=== PATIENT | female | born 1950 | race Caucasian/White ===

== ENCOUNTER 2017-09-14 01:44 | Emergency (ER) | payer BC ==
[~2017-09-14] VITALS: Ht 167.6 cm; Wt 63.5 kg
[~2017-09-14 01:44] MED LIST: CELEXA40 MG PO; VICODIN ES 7501 TAB PO; XANAX0.25 MG PO
[2017-09-14 02:22] LABS: BASO % 0.6 % (0.0-1.0); EOS # 0.3 10*3/uL (0.0-0.4); EOS % 4.4 % (1.0-4.0); HEMATOCRIT 32.5 % (37.0-47.0); LYMPH # 2.5 10*3/uL (1.3-4.4); LYMPH % 38.6 % (27.0-41.0); MEAN CELL VOLUME 91.3 fl (81.0-99.0); MEAN CORPUSCULAR HGB 33.7 pg (27.0-31.0); MEAN CORPUSCULAR HGB CONC 36.9 g/dl (33.0-37.0); MEAN PLATELET VOLUME 9.7 fl (9.6-12.3); MONO # 0.5 10*3/uL (0.1-1.0); MONO % 7.6 % (3.0-9.0); NEUT # 3.1 10*3/uL (2.3-7.9); NEUT % 48.5 % (47.0-73.0); PLATELET COUNT AUTOMATED 291 10*3/uL (130-400); RED BLOOD COUNT 3.56 10*6/uL (4.10-5.10); RED CELL DISTRI WIDTH 12.6 % (0-14.5); WHITE BLOOD COUNT 6.4 10*3/uL (4.8-10.8)
[2017-09-14 02:33] LABS: INTERNATIONAL NORM RATIO 0.9 (2.0-3.5)
[2017-09-14 02:36] LABS: ALBUMIN 3.4 gm/dl (3.1-4.5); ALKALINE PHOSPHATASE 94 U/L (45-117); BUN 8 mg/dl (7-24); CHLORIDE 101 mmol/L (98-107); CREATININE 0.69 mg/dL (0.55-1.02); POTASSIUM 3.7 mmol/L (3.5-5.1); SGOT/AST 15 IU/L (3-35); SGPT/ALT 19 U/L (12-78); SODIUM 139 mmol/L (136-145); TOTAL PROTEIN 6.7 gm/dL (6.4-8.2)
[2017-09-14 02:50] LABS: BILIRUBIN NEGATIVE (NEGATIVE); BLOOD 1+ (NEGATIVE); CLARITY SL CLOUDY (CLEAR); COLOR YELLOW (YELLOW); GLUCOSE NEGATIVE (NEGATIVE); KETONE NEGATIVE (NEGATIVE); LEUKO ESTERASE NEGATIVE (NEGATIVE); NITRITE NEGATIVE (NEGATIVE); SPECIFIC GRAVITY <= 1.005 (1.005-1.030); UROBILINOGEN 0.2 E.U./dl (0.2-1.0)
[2017-09-14 02:55] LABS: EPITHELIAL CELLS 0-5; WBC 0-2 wbc/hpf (0-5)
[2017-09-14 03:12] VITALS: BP 119/69
[2017-09-14] MEDS ORDERED: ZITHROMAX250 MG PO (03:58)
[2017-09-14] MEDS ORDERED: PREDNISONE20 M1 PO (03:58)
[2017-09-14] MEDS ORDERED: DUONEB 3 MG/3 ML3 M1 INH (03:58)
== END 2017-09-14 04:14 | disposition home or self-care (01) ==
LOC: ED 01:44
PROVIDERS: Emergency Medicine Emergency Medical Services
DX: J20.9 Acute bronchitis, unspecified (principal); F17.200 Nicotine dependence, unspecified, uncomplicated; Z88.0 Allergy status to penicillin; Z79.899 Other long term (current) drug therapy

== ENCOUNTER 2018-07-31 17:19 | Emergency (ER) | payer OTHER ==
[~2018-07-31] VITALS: Wt 65.3 kg
[~2018-07-31 17:19] MED LIST changes: +DUONEB 3 MG/3 ML3 M1 INH; +PREDNISONE20 M1 PO; +ZITHROMAX250 MG PO
[2018-07-31 17:20] VITALS: BP 149/60
[2018-07-31] MEDS ORDERED: CLINDAMYCIN150 MG PO (17:28)
[2018-07-31] MEDS ORDERED: ZOFRAN4 MG PO (17:28)
[2018-08-01] MEDS ORDERED: KEFLEX500 M1 PO (20:04)
== END 2018-07-31 17:36 | disposition home or self-care (01) ==
LOC: ED 17:19
DX: L03.012 Cellulitis of left finger (principal); R03.0 Elevated blood-pressure reading, without diagnosis of hypertension; Z88.0 Allergy status to penicillin; Z79.899 Other long term (current) drug therapy

== ENCOUNTER 2018-08-01 19:06 | Emergency (ER) | payer OTHER ==
[~2018-08-01] VITALS: Ht 167.6 cm; Wt 65.8 kg
[~2018-08-01 19:06] MED LIST changes: +CLINDAMYCIN150 MG PO; +ZOFRAN4 MG PO
[2018-08-01 19:10] VITALS: BP 105/65
[2018-08-01] MEDS ORDERED: KEFLEX500 M1 PO (20:04)
== END 2018-08-01 19:51 | disposition home or self-care (01) ==
LOC: ED 19:06
DX: L03.012 Cellulitis of left finger (principal); Z88.0 Allergy status to penicillin

== ENCOUNTER → 2018-08-02 | Outpatient (CLI) | payer OTHER ==
[~2018-08-02] MED LIST changes: +KEFLEX500 M1 PO
[2018-08-07 15:12] LABS: HLA-B27 ANTIGEN Positive (.)
== END | disposition home or self-care (01) ==
LOC: LAB 11:59
PROVIDERS: Internal Medicine Rheumatology
DX: M47.897 Other spondylosis, lumbosacral region (principal); M87.08 Idiopathic aseptic necrosis of bone, other site; M41.84 Other forms of scoliosis, thoracic region; M50.30 Other cervical disc degeneration, unspecified cervical region

== ENCOUNTER → 2018-08-06 | Outpatient (CLI) | payer OTHER | END | disposition home or self-care (01) | LOC: WOUNDCARE 01:31 | DX: T23.022A Burn of unspecified degree of single left finger (nail) except thumb, initial encounter (principal); T31.0 Burns involving less than 10% of body surface; A49.1 Streptococcal infection, unspecified site; F17.290 Nicotine dependence, other tobacco product, uncomplicated; Z90.710 Acquired absence of both cervix and uterus; W29.2XXA Contact with other powered household machinery, initial encounter; Y93.89 Activity, other specified; Y92.89 Other specified places as the place of occurrence of the external cause; Y99.8 Other external cause status ==

== ENCOUNTER → 2018-08-13 | Outpatient (CLI) | payer OTHER | END | disposition home or self-care (01) | LOC: WOUNDCARE 04:25 | DX: T23.222D Burn of second degree of single left finger (nail) except thumb, subsequent encounter (principal); T31.0 Burns involving less than 10% of body surface; A49.1 Streptococcal infection, unspecified site; F17.290 Nicotine dependence, other tobacco product, uncomplicated; X08.8XXD Exposure to other specified smoke, fire and flames, subsequent encounter ==

== ENCOUNTER 2018-10-30 07:58 | Emergency (ER) | payer OTHER ==
[~2018-10-30] VITALS: Ht 167.6 cm; Wt 62.6 kg
[2018-10-30 07:59] VITALS: BP 134/65
[2018-10-30] MEDS ORDERED: PERCOCET 5-3251 EACH PO (09:51)
[2018-11-26] MEDS ORDERED: AVPAK PRIMIDONE50 M1 PO (11:24)
[2018-11-28] MEDS ORDERED: NORCO 5-325 TA1 EACH PO (10:23)
[2018-11-28] MEDS ORDERED: ZOFRAN4 MG PO (10:24)
== END 2018-10-30 10:18 | disposition home or self-care (01) ==
LOC: ED 07:58
DX: S62.101A Fracture of unspecified carpal bone, right wrist, initial encounter for closed fracture (principal); S52.531A Colles' fracture of right radius, initial encounter for closed fracture; Z88.0 Allergy status to penicillin; Z79.2 Long term (current) use of antibiotics; Z79.899 Other long term (current) drug therapy; Z90.710 Acquired absence of both cervix and uterus; W01.0XXA Fall on same level from slipping, tripping and stumbling without subsequent striking against object, initial encounter; Y93.G1 Activity, food preparation and clean up; Y92.090 Kitchen in other non-institutional residence as the place of occurrence of the external cause; Y99.8 Other external cause status

== ENCOUNTER → 2018-11-18 | Outpatient (CLI) | payer OTHER ==
[~2018-11-18] MED LIST changes: +AVPAK PRIMIDONE50 M1 PO; +NORCO 5-325 TA1 EACH PO; +PERCOCET 5-3251 EACH PO
== END | disposition home or self-care (01) ==
LOC: ORTHO 02:33
DX: S52.531D Colles' fracture of right radius, subsequent encounter for closed fracture with routine healing (principal); X58.XXXD Exposure to other specified factors, subsequent encounter

== ENCOUNTER → 2018-11-25 | Outpatient (CLI) | payer OTHER | END | disposition home or self-care (01) | LOC: ORTHO 00:44 | DX: S52.531D Colles' fracture of right radius, subsequent encounter for closed fracture with routine healing (principal); X58.XXXD Exposure to other specified factors, subsequent encounter; Z91.81 History of falling ==

== ENCOUNTER → 2018-11-28 | Day surgery (SDC) | payer OTHER ==
[2018-11-26 11:25] VITALS: BP 117/62
[2018-11-26 12:53] LABS: BASO # 0.1 10*3/uL (0.0-0.1); BASO % 0.9 % (0.0-1.0); EOS # 0.1 10*3/uL (0.0-0.4); EOS % 2.2 % (1.0-4.0); HEMATOCRIT 40.5 % (37.0-47.0); HEMOGLOBIN 14.8 g/dl (12.0-16.0); LYMPH # 2.3 10*3/uL (1.3-4.4); LYMPH % 38.8 % (27.0-41.0); MEAN CORPUSCULAR HGB 34.3 pg (27.0-31.0); MEAN CORPUSCULAR HGB CONC 36.5 g/dl (33.0-37.0); MEAN PLATELET VOLUME 10.7 fl (9.6-12.3); MONO # 0.3 10*3/uL (0.1-1.0); MONO % 5.7 % (3.0-9.0); NEUT % 52.2 % (47.0-73.0); PLATELET COUNT AUTOMATED 273 10*3/uL (130-400); RED BLOOD COUNT 4.31 10*6/uL (4.10-5.10); RED CELL DISTRI WIDTH 13.3 % (0-14.5); WHITE BLOOD COUNT 5.8 10*3/uL (4.8-10.8)
[2018-11-26 12:54] LABS: BILIRUBIN NEGATIVE (NEGATIVE); BLOOD 1+ (NEGATIVE); CLARITY SL CLOUDY (CLEAR); COLOR YELLOW (YELLOW); GLUCOSE NEGATIVE (NEGATIVE); KETONE NEGATIVE (NEGATIVE); LEUKO ESTERASE NEGATIVE (NEGATIVE); NITRITE NEGATIVE (NEGATIVE); SPECIFIC GRAVITY >= 1.030 (1.005-1.030); UROBILINOGEN 0.2 E.U./dl (0.2-1.0)
[2018-11-26 13:18] LABS: BACTERIA TRACE; EPITHELIAL CELLS 16-20; MUCOUS 2+
[2018-11-26 13:21] LABS: BUN 11 mg/dl (7-24); CHLORIDE 101 mmol/L (98-107); CREATININE 0.76 mg/dL (0.55-1.02); SODIUM 138 mmol/L (136-145)
[~2018-11-28] VITALS: Ht 167.6 cm; Wt 62.6 kg
--- NOTE | ~2018-11-28 | EKG ---
[place], [place] ELECTROCARDIOGRAM REPORT NAME: JAZ GARCIA UNIT #: [id number] ROOM: DOCTOR: NAGA DRAFT REPORT BIRTHDATE: [birth year] [facility] Test Date: 2018-11-26 Test Time: 12:18:40 Pat Name: JAZ GARCIA Department: Room: Gender: F Umbrella Cutter: Ifeoma Davies : 1950 Requested By: LUPIS LOTT Order Number: [id number] Reading MD: Olive Perkins MD Measurements Intervals [place] Rate: 68 P: 46 WV: 127 QRS: 43 QRSD: 84 T: 7 QT: 390 QTc: 415 Interpretive Statements Sinus rhythm Minimal ST depression Baseline wander in lead(s) V3,V4 No previous ECG available for comparison Electronically Signed On 11-27-2018 11:50:52 PDT by Olive Perkins MD CM:EKGRPT:ELECTROCARDIOGRAM REPORT [id number] LUPIS GARLAND DRAFT REPORT LUPIS LOTT DO
[2018-11-28 09:32] VITALS: BP 121/87
[2018-11-28 12:23] VITALS: BP 143/72
[2018-11-28 12:40] VITALS: BP 132/69
[2018-11-28 12:54] VITALS: BP 135/61
[2018-11-28 13:09] VITALS: BP 119/68
[2018-11-28 13:23] VITALS: BP 135/73
== END | disposition home or self-care (01) ==
LOC: SDC 11-26 11:00
PROVIDERS: Orthopaedic Surgery
DX: S52.571A Other intraarticular fracture of lower end of right radius, initial encounter for closed fracture (principal); J44.9 Chronic obstructive pulmonary disease, unspecified; F41.9 Anxiety disorder, unspecified; Z90.710 Acquired absence of both cervix and uterus; Z98.890 Other specified postprocedural states; Z79.899 Other long term (current) drug therapy; X58.XXXA Exposure to other specified factors, initial encounter; Y93.89 Activity, other specified; Y92.89 Other specified places as the place of occurrence of the external cause; Y99.8 Other external cause status

== ENCOUNTER → 2018-12-25 | Outpatient (CLI) | payer OTHER | END | disposition home or self-care (01) | LOC: ORTHO 02:11 | DX: S52.531D Colles' fracture of right radius, subsequent encounter for closed fracture with routine healing (principal); X58.XXXD Exposure to other specified factors, subsequent encounter ==

== ENCOUNTER → 2019-03-07 | Outpatient (CLI) | payer OTHER | END | disposition home or self-care (01) | LOC: ORTHO 01:42 | DX: S52.531D Colles' fracture of right radius, subsequent encounter for closed fracture with routine healing (principal); X58.XXXD Exposure to other specified factors, subsequent encounter ==

== ENCOUNTER 2019-03-26 17:54 | Emergency (ER) | payer OTHER ==
[~2019-03-26] VITALS: Wt 59.9 kg
[2019-03-26 17:54] VITALS: BP 135/73
== END 2019-03-26 19:20 | disposition home or self-care (01) ==
LOC: ED 17:54
DX: S29.011A Strain of muscle and tendon of front wall of thorax, initial encounter (principal); Z88.0 Allergy status to penicillin; Z79.899 Other long term (current) drug therapy; V43.52XA Car driver injured in collision with other type car in traffic accident, initial encounter; Y93.89 Activity, other specified; Y92.413 State road as the place of occurrence of the external cause; Y99.8 Other external cause status

== ENCOUNTER → 2019-04-02 | Outpatient (CLI) | payer OTHER | END | disposition home or self-care (01) | LOC: ORTHO 01:56 | DX: S52.531D Colles' fracture of right radius, subsequent encounter for closed fracture with routine healing (principal); X58.XXXD Exposure to other specified factors, subsequent encounter; M79.9 Soft tissue disorder, unspecified ==

== ENCOUNTER → 2019-04-21 | Outpatient (CLI) | payer OTHER | END | disposition home or self-care (01) | LOC: ORTHO 01:32 | DX: M81.0 Age-related osteoporosis without current pathological fracture (principal) ==

== ENCOUNTER 2022-02-09 02:33 | Emergency (ER) | payer OTHER ==
[~2022-02-09] VITALS: Ht 167.6 cm; Wt 59.0 kg
[2022-02-09] MEDS ORDERED: PEPCID20 MG PO (03:49)
[2022-02-09] MEDS ORDERED: MEDROL DOSEPAK4 MG PO (03:49)
== END 2022-02-09 03:45 | disposition home or self-care (01) ==
LOC: ED 02:33
DX: L50.8 Other urticaria (principal); Z98.890 Other specified postprocedural states; Z90.710 Acquired absence of both cervix and uterus; Z79.899 Other long term (current) drug therapy; Z88.0 Allergy status to penicillin